=== PATIENT | male | born 1945 | race Caucasian/White ===

== ENCOUNTER 2018-07-06 11:37 | Inpatient (IN) ==
[2018-07-06] MEDS ORDERED: IOPAMIDOL 100 ML BOTTLE IV ONE (11:38)
--- NOTE | 2018-07-06 11:43 | Emergency Department Note ---
Neuro HPI - General Chief Complaint: Stroke Symptoms Stated Complaint: stroke symptoms Time Seen by Provider: 07/06/18 11:41 - History of Present Illness HPI Narrative: This patient was last known to be normal at 10 AM which is about an hour and a half ago. came back from the dentist and found that he is having some trouble speaking with slight right facial droop and trouble handling coffee cup. However he does seem to be improving some but still having a little speech difficulty. No focal neurologic weakness. He does have a long history of atrial fibrillation and only takes aspirin as an anti-coagulant. - Related Data Home Medications: Home Medications Medication Instructions Recorded Confirmed Carvedilol [Coreg] 12.5 mg PO BIDCC 07/06/18 07/06/18 Lovastatin [Mevacor] 5 mg PO HS 07/06/18 07/06/18 Naproxen [EC-Naprosyn] 500 mg PO DAILY 07/06/18 07/06/18 [place]-3 Fatty Acids/Fish Oil 1 each PO DAILY 07/06/18 07/06/18 [[place] 3 Fish Oil Softgel] Allergies/Adverse Reactions: Allergies Allergy/AdvReac Type Severity Reaction Status Date / Time No Known Drug Allergies Allergy Verified 07/06/18 11:44 Review of Systems All systems ED: reviewed and negative except as stated. Past Medical History - Past Medical History Medical history: Reports: atrial fibrillation Surgical history ED: Reports: herniorrhaphy (Umbilical) Physical Exam Limitations: no limitations General appearance: alert Head: atraumatic Eye: Present: normal appearance ENT: normal exam Neck: Present: normal inspection Chest: Present: normal inspection Respiratory: Present: normal lung sounds bilaterally Cardiovascular: Present: regular rate, normal rhythm, normal heart sounds Abdominal: Present: soft. Absent: distention, tenderness Neurological: Present: alert Psychiatric: Present: normal affect Skin: Present: warm, dry, intact Course Vital Signs Temperature 97.0 F 07/06/18 11:47 Pulse Rate 89 07/06/18 11:47 Respiratory Rate 18 07/06/18 11:47 Blood Pressure 177/112 07/06/18 11:47 Pulse Oximetry (%) 98 07/06/18 11:47 Temperature 97.0 F 07/06/18 11:47 Pulse Rate 77 07/06/18 14:55 Respiratory Rate 15 07/06/18 15:03 Blood Pressure 163/110 07/06/18 15:03 Pulse Oximetry (%) 99 07/06/18 14:55 Neuro Symptoms/Deficit - MDM Narrative Medical decision making narrative: The patient's symptoms had improved markedly by the time the stroke neurologist interviewed him and the patient and decided not to pursue TPA. We did do CTAs of head and neck that were not very remarkable. Also a brain MR may show a slight decrease in diffusion in the right temporal cortex. At this point the patient will be admitted to the hospital by Dr. Olivera. - Lab Data Lab results reviewed: Yes I reviewed the patient's lab results. Result diagrams: 07/06/18 11:47 07/06/18 11:47 Lab Results 07/06/18 07/06/18 07/06/18 Range/Units 11:47 11:47 11:47 WBC 7.3 (4.5-11.0) K/mcL RBC 4.35 L (4.50-5.90) M/mcL Hgb 14.4 (13.5-16.5) g/dL Hct 42.1 (41.0-55.0) % POC Hct 42.0 (41.0-55.0) % MCV 96.9 (80.0-100.0) fL MCH 33.1 (26.0-34.0) pg MCHC 34.2 (31.0-36.0) g/dL RDW 13.8 (11.5-14.5) % Plt Count 213 (140-440) K/mcL MPV 8.4 (7.4-10.4) fL Gran % 54.4 (38.0-78.0) % Lymph % (Auto) 31.0 (15.5-49.0) % [place] % (Auto) 11.1 (1.0-12.0) % Eos % (Auto) 2.8 (0.0-7.0) % Baso % (Auto) 0.7 (0.0-2.0) % Gran # 3.9 (1.8-8.0) K/mcL Lymph # (Auto) 2.3 (1.5-4.8) K/mcL [place] # (Auto) 0.8 (0.1-0.9) K/mcL Eos # (Auto) 0.2 (0.0-0.7) K/mcL Baso # (Auto) 0.1 (0.0-0.3) K/mcL POC PT 12.6 (11.9-14.5) sec POC INR 1.1 (0.9-1.2) APTT 31 (20-37) sec POC Sodium 143 (133-145) mmol/L Sodium 142 (133-145) mmol/L POC Potassium 4.3 (3.3-5.1) mmol/L Potassium 4.4 (3.3-5.1) mmol/L POC Chloride 101 (96-108) mmol/L Chloride 103 (96-108) mmol/L Carbon Dioxide 30 (22-30) mmol/L POC Total CO2 31 H (22-30) mmol/L Anion Gap 9.0 (8-16) POC BUN 20 (8-23) mg/dl BUN 17 (8-23) mg/dl Creatinine 1.0 (0.7-1.2) mg/dl POC Creatinine 1.1 (0.7-1.2) mg/dl GFR Calculation 75 Glucose 94 (70-105) mg/dL POC Glucose 94 (70-105) mg/dL Calcium 8.8 (8.6-10.4) mg/dl POC WB Ioniz Calcium 1.12 L (1.16-1.32) mmol/L Total Bilirubin 0.5 (0.0-1.0) mg/dL AST 21 (0-37) U/l ALT 16 (0-40) U/l Alkaline Phosphatase 64 (39-117) U/L Troponin T (0-0.03) ng/ml Total Protein 6.8 (5.9-8.4) gm/dL Albumin 3.8 (3.2-5.2) gm/dL Globulin 3.0 (2.2-3.7) gm/dL Albumin/Globulin Ratio 1.3 (1.0-2.3) Urine Color Urine Appearance Urine pH (5.0-9.0) Ur Specific [place] (1.000-1.035) Urine Protein (NEG) mg/dL Urine Glucose (UA) (NEG) mg/dL Urine Ketones (NEG) mg/dL Urine Occult Blood (<0.03) mg/dL Urine Nitrate (NEG) Urine Bilirubin (NEG) mg/dL Urine Urobilinogen (NEG) mg/dL Ur Leukocyte Esterase (NEG) /uL Ur Culture Indicated? 07/06/18 07/06/18 Range/Units 11:47 14:05 WBC (4.5-11.0) K/mcL RBC (4.50-5.90) M/mcL Hgb (13.5-16.5) g/dL Hct (41.0-55.0) % POC Hct (41.0-55.0) % MCV (80.0-100.0) fL MCH (26.0-34.0) pg MCHC (31.0-36.0) g/dL RDW (11.5-14.5) % Plt Count (140-440) K/mcL MPV (7.4-10.4) fL Gran % (38.0-78.0) % Lymph % (Auto) (15.5-49.0) % [place] % (Auto) (1.0-12.0) % Eos % (Auto) (0.0-7.0) % Baso % (Auto) (0.0-2.0) % Gran # (1.8-8.0) K/mcL Lymph # (Auto) (1.5-4.8) K/mcL [place] # (Auto) (0.1-0.9) K/mcL Eos # (Auto) (0.0-0.7) K/mcL Baso # (Auto) (0.0-0.3) K/mcL POC PT (11.9-14.5) sec POC INR (0.9-1.2) APTT (20-37) sec POC Sodium (133-145) mmol/L Sodium (133-145) mmol/L POC Potassium (3.3-5.1) mmol/L Potassium (3.3-5.1) mmol/L POC Chloride (96-108) mmol/L Chloride (96-108) mmol/L Carbon Dioxide (22-30) mmol/L POC Total CO2 (22-30) mmol/L Anion Gap (8-16) POC BUN (8-23) mg/dl BUN (8-23) mg/dl Creatinine (0.7-1.2) mg/dl POC Creatinine (0.7-1.2) mg/dl GFR Calculation Glucose (70-105) mg/dL POC Glucose (70-105) mg/dL Calcium (8.6-10.4) mg/dl POC WB Ioniz Calcium (1.16-1.32) mmol/L Total Bilirubin (0.0-1.0) mg/dL AST (0-37) U/l ALT (0-40) U/l Alkaline Phosphatase (39-117) U/L Troponin T < 0.01 (0-0.03) ng/ml Total Protein (5.9-8.4) gm/dL Albumin (3.2-5.2) gm/dL Globulin (2.2-3.7) gm/dL Albumin/Globulin Ratio (1.0-2.3) Urine Color Yellow Urine Appearance Clear Urine pH 7.0 (5.0-9.0) Ur Specific [place] 1.053 H (1.000-1.035) Urine Protein Neg (NEG) mg/dL Urine Glucose (UA) Negative (NEG) mg/dL Urine Ketones Neg (NEG) mg/dL Urine Occult Blood Neg (<0.03) mg/dL Urine Nitrate Neg (NEG) Urine Bilirubin Neg (NEG) mg/dL Urine Urobilinogen Neg (NEG) mg/dL Ur Leukocyte Esterase Neg (NEG) /uL Ur Culture Indicated? No - Radiology Data Radiology results reviewed: Yes I reviewed the patient's radiology results. Disposition Pt seen by TOY DESIGNER/PA only: No Clinical Impression: TIA (transient ischemic attack) Disposition: Xfer As Outpt/Obs ([facility]) Condition: Good Referrals: Marcy Velasco MD [Primary Care Provider] - Time of Disposition: 15:20
--- NOTE | 2018-07-06 11:59 | Cat Scan Report ---
CLINICAL INFORMATION: Stroke assessment. Dysarthria COMPARISON: None. TECHNIQUE: Axial noncontrast-enhanced images through the brain. FINDINGS: No acute intracranial hemorrhage. No intra-axial hematoma. No focal intra-axial attenuation abnormality or localized mass effect. No midline shift. No subdural hematoma. No subarachnoid hemorrhage. There is cerebral atrophy with prominent superficial subarachnoid spaces bilaterally. There is mild cerebellar atrophy. Brainstem is negative. Basilar cisterns are negative. No hyperdense middle cerebral artery sign. No calvarial fracture. No lytic lesion. Temporal bones are negative. IMPRESSION: 1. No acute abnormality. No acute intra-axial attenuation abnormality or mass effect. No intracranial hemorrhage 2. Cerebral atrophy with prominent superficial subarachnoid spaces The exam was performed using radiation dose optimization techniques including, but not limited to, automated exposure control, adjustment of the mA and/or kV according to patient size and use of iterative reconstruction technique. Interpreted and Authenticated by: Anthony Ramírez 07/06/18
[2018-07-06] MEDS ORDERED: ALTEPLASE 0 ML IV ONE (12:17)
[2018-07-06 12:39] LABS: Basophils # (Auto) 0.1 K/mcL (0.0-0.3); Basophils % (Auto) 0.7 % (0.0-2.0); Eosinophils # (Auto) 0.2 K/mcL (0.0-0.7); Eosinophils % (Auto) 2.8 % (0.0-7.0); Granulocytes % (Auto) 54.4 % (38.0-78.0); Lymphocytes # (Auto) 2.3 K/mcL (1.5-4.8); Mean Cell Volume 96.9 fL (80.0-100.0); Mean Corpuscular HGB Conc 34.2 g/dL (31.0-36.0); Monocytes # (Auto) 0.8 K/mcL (0.1-0.9); Monocytes % (Auto) 11.1 % (1.0-12.0); Platelet Count 213 K/mcL (140-440); RBC 4.35 M/mcL (4.50-5.90); Red Cell Distribution Width 13.8 % (11.5-14.5)
[2018-07-06 12:55] LABS: ALT/SGPT 16 U/l (0-40); Albumin 3.8 gm/dL (3.2-5.2); Albumin/Globulin Ratio 1.3 (1.0-2.3); Alkaline Phosphatase 64 U/L (39-117); Blood Urea Nitrogen 17 mg/dl (8-23)
--- NOTE | 2018-07-06 13:11 | Cat Scan Report ---
CLINICAL INFORMATION: Stroke symptoms TECHNIQUE: Axial images through the upper chest, neck, head. 80 mL contrast material injected intravenously. Scanning was performed during arterial phase. Sagittal and coronal reformatted images. MIP reformatted images COMPARISON: Noncontrast enhanced brain CT scan dated 07/06/2018 FINDINGS: There is calcification of the aortic arch. Origins of the left subclavian artery, left common carotid artery, innominate artery, right subclavian artery, right common carotid artery are negative. There is calcification at the origin of left vertebral artery. There is no origin stenosis. There is calcification at the origin of the right vertebral artery. There is evidence for hemodynamically significant stenosis. Right vertebral artery is a small caliber vessel. It is patent throughout its length. There is calcification with hemodynamically significant stenosis at the C4-5 level. Intracranial right vertebral artery is not visualized and is occluded or congenitally absent. Common carotid arteries and cervical internal carotid arteries are negative. No calcified or noncalcified plaque. No evidence for fibromuscular dysplasia. No ulceration. No stenosis. Intracranial portion of the left vertebral artery is patent. This is a small caliber vessel. Intracranial portion of the right vertebral artery is not patent. This is either occluded or congenitally absent. Basilar artery is a very small caliber vessel. Right posterior communicating artery and left posterior communicating artery are patent. Petrous, cavernous, supraclinoid segments of the internal carotid arteries are patent and normal. M1 segments of the middle cerebral arteries and A1 segments and anterior cerebral arteries are negative. No intracranial branch occlusion. No arteriovenous malformation. No aneurysm. No cortical or deep white matter enhancement. Lung apices are negative. No parenchymal mass. Cervical soft tissues are negative. No solid or cystic mass. No prevertebral soft tissue swelling. No pathologic adenopathy. IMPRESSION: 1. Abnormal right vertebral artery. There is stenosis at the origin of the right vertebral artery and atherosclerotic stenosis of the cervical right vertebral artery at the C4 level. Intracranial right vertebral artery is not visualized 2. Small caliber basilar artery. Basilar artery is patent. Posterior communicating arteries are patent 3. Common carotid arteries and internal carotid arteries are negative. Intracranial carotid circulation is negative Interpreted and Authenticated by: Anthony Ramírez 07/06/18
[2018-07-06 14:45] LABS: Appearance,Urine CLEAR; Bilirubin,Urine NEG (NEG); Color,Urine YELLOW; Glucose,Urine (UA) NEGATIVE (NEG); Leukocyte Esterase,Urine NEG /uL (NEG); Protein,Urine NEG (NEG); Specific Gravity,Urine 1.053 (1.000-1.035); Urine Blood NEG mg/dL (<0.03); Urobilinogen,Urine NEG (NEG)
--- NOTE | 2018-07-06 15:01 | Magnetic Resonance Report ---
CLINICAL INFORMATION: Dysarthria COMPARISON: Brain CT scan dated 07/06/2018. Neck and brain CTA dated 07/06/2018 TECHNIQUE: Sagittal T1 FLAIR images. Axial DWI, T1 FLAIR, T2 FLAIR, T2, GRE. Coronal T2 FSE. FINDINGS: There may be a subtle area of mildly restricted diffusion in the left insular cortex. This is in the superior medial left temporal lobe. There may be a subtle ADC abnormality. These findings are not considered definite but are suggestive of a very small focal acute infarction. No corresponding T2-weighted abnormality. There is no susceptibility. No hemorrhagic abnormality. Cerebral hemispheres are otherwise negative. No other focal abnormality. Brain volume is within normal limits. No hydrocephalus. Brainstem and cerebellum are negative. No extra-axial, intracranial abnormality. As described in a previous report there is a very small but patent basilar artery. IMPRESSION: 1. Possible small focus of restricted diffusion in the insular cortex of the left superior temporal lobe. 2. Very small basilar artery. Basilar artery is patent 3. No other abnormality Interpreted and Authenticated by: Anthony Ramírez 07/06/18
[2018-07-06] MEDS ORDERED: POTASSIUM CHLORIDE 40 MEQ in DEXTROSE 5% IN WATER 500 ML IV PRN ×2 (16:02→16:40)
[2018-07-06] MEDS ORDERED: MAGNESIUM SULFATE 2 GM/50 ML BAG IV PRN ×2 (16:02→16:40)
[2018-07-06] MEDS ORDERED: ONDANSETRON 4 MG/2 ML VIAL IV PRN ×2 (16:02→16:40)
[2018-07-06] MEDS ORDERED: POLYETHYLENE GLYCOL 3350 17 GM PACKET PO PRN ×2 (16:02→16:40)
[2018-07-06] MEDS ORDERED: POTASSIUM CHLORIDE 20 MEQ TABLET PO PRN ×4 (16:02→16:40)
[2018-07-06] MEDS ORDERED: ACETAMINOPHEN 325 MG TABLET PO PRN ×2 (16:02→16:40)
[2018-07-06] MEDS ORDERED: ASPIRIN 81 MG TAB.CHEW CHEWED ONE ×2 (16:07→16:40)
[2018-07-06] MEDS ORDERED: METOPROLOL TARTRATE 5 MG/5 ML VIAL IV PRN ×2 (16:08→16:40)
[2018-07-06] MEDS ORDERED: LABETALOL HCL 20 MG/4 ML SYRINGE IV ONE (16:08)
[2018-07-06] MEDS ORDERED: 0.9 % SODIUM CHLORIDE 1,000 ML IV SCH (16:15)
--- NOTE | 2018-07-06 16:16 | Internal Med History&Physical ---
Medical - H&P: HPI Patient information: Note initiated : 07/06/18 at 4:12 pm Service Date, if different from initiated Date: [] Patient: Narayan Vilchis 73 y/o M admitted on 07/06/18 for stroke symptoms. Chief Complaint: [] History of present illness: Mr. Vilchis is a 73 year old M who presents the ED with his after he developed right facial droop slurring and incoordination of his right hand. Per the patient and , came back from disappointment found him to have slurring of his speech as well as a right facial droop, he also felt what is described his right upper extremity dysmetria. His is worried about a stroke and brought him in rapidly. Does have history of atrial fibrillation and is been on aspirin and Coreg and is also on lovastatin 5 mg daily. In the ED had a full neurological workup including telemetry stroke workup. His symptoms essentially resolved after about 90 minutes which is the time of the stroke neurologist evaluated him. Imaging included CTA neck and head and a subsequent MRI. The carotid arteries appear to be patent the CT brain just showed some atrophy but no ischemic or hemorrhage. MRI showed a "possible small focus of restricted diffusion in the insular cortex of the left superior temporal lobe". TPA was not given because of the rapid improvement, and in discussion with patient family. Blood pressure elevated otherwise vitals unremarkable. EKG with A. fib at rate in the 80s Patient is not been sick recently. she believes he does not drink enough fluid. No stroke in the past. No vision changes. No focal extremity weakness or numbness Review of Systems: Pertinent positives as above. Denies headache/fever/chills/nausea/vomiting /chest or abdominal pain/cough/dyspnea/diarrhea. Remaining 10 point review of systems reviewed negative Medical - H&P: PMH Medical history: Medical history: Hypertension hyperlipidemia atrial fibrillation Surgical history: Herniorrhaphy Family history: Mother had CHF Father had myocardial infarction Social history: Patient smokes half pack of cigarettes per week, drinks alcohol one time a week lives at home with his Medical - H&P: Meds Home Medications Medication Instructions Recorded Confirmed Type Carvedilol [Coreg] 12.5 mg PO BIDCC 07/06/18 07/06/18 History Lovastatin [Mevacor] 5 mg PO HS 07/06/18 07/06/18 History Naproxen [EC-Naprosyn] 500 mg PO DAILY 07/06/18 07/06/18 History [place]-3 Fatty Acids/Fish Oil 1 each PO DAILY 07/06/18 07/06/18 History [[place] 3 Fish Oil Softgel] Allergies Allergy/AdvReac Type Severity Reaction Status Date / Time No Known Drug Allergies Allergy Verified 07/06/18 11:44 Medical - H&P: Exam - Constitutional Vitals: Temp Pulse Resp BP Pulse Ox 97.0 F 71 19 167/104 99 07/06/18 11:47 07/06/18 15:49 07/06/18 15:49 07/06/18 15:32 07/06/18 15:49 Exam: General: Alert, Awake, No acute Distress Eyes/N/T: EOMI, PEERL, DMM Head/Neck: neck supple, normocephalic atraumatic CV: Irregular irregular, No murmurs, normal s1/s2 Pulm: Clear b/l, no wheezing/rhonchi/rales Abd: soft, nontender, +BS x4 Ext: no clubbing/cyanosis/edema Neuro: Alert, no focal deficits, moves all extremities, CN 2-12 grossly intact, symmetrical strength b/l upper/lower, sensations intact b/l upper/lower. No pronator drift. Face symmetrical. Speech clear. Skin: warm/dry Medical - H&P: Reslt - Labs CBC & Chem 7: 07/06/18 11:47 07/06/18 11:47 Labs: Short CBC 07/06/18 Range/Units 11:47 WBC 7.3 (4.5-11.0) K/mcL Hgb 14.4 (13.5-16.5) g/dL Hct 42.1 (41.0-55.0) % Plt Count 213 (140-440) K/mcL BMP 07/06/18 11:47 Sodium 142 Potassium 4.4 Chloride 103 Carbon Dioxide 30 BUN 17 Creatinine 1.0 Glucose 94 Calcium 8.8 Cardiac Enzymes 07/06/18 Range/Units 11:47 Troponin T < 0.01 (0-0.03) ng/ml Liver Function 07/06/18 Range/Units 11:47 Total Bilirubin 0.5 (0.0-1.0) mg/dL AST 21 (0-37) U/l ALT 16 (0-40) U/l Alkaline Phosphatase 64 (39-117) U/L Albumin 3.8 (3.2-5.2) gm/dL Urine 07/06/18 Range/Units 14:05 Urine Color Yellow Urine Appearance Clear Urine pH 7.0 (5.0-9.0) Ur Specific [place] 1.053 H (1.000-1.035) Urine Protein Neg (NEG) mg/dL Urine Glucose (UA) Negative (NEG) mg/dL - Impressions EKG with A. fib, CT of the neck with patent carotid arteries, MRI of the brain with a possible small focus of restricted diffusion in the insular cortex on the left superior temporal lobe Medical - H&P: A/P - Narrative A/P Narrative: A: *TIA/CVA: MRI showing a possible diffusion abnormality in the insular cortex of the left superior temporal lobe -CTA Neck no sig carotid stenosis -ABCD=5 *Afib: had been on aspirin -CHADSVASC now after TIA/CVA=4 *HTN/HLD: * P: -IVF's -Permissive hypertension first 24 hours, hold Coreg today -Aspirin/statin -Check lipid panel -Start anticoagulation after 24 hours, Eliquis -neurochecks -echo pending - -pt/ot eval -ppx:lovenox
[2018-07-06] MEDS: 0.9 % SODIUM CHLORIDE 1,000 ML IV SCH ×2 (16:53→22:40)
[2018-07-06 20:26] LABS: HDL Cholesterol 55 mg/dl (>40); LDL Cholesterol,Calculated 74 mg/dl (SEE CHART)
[2018-07-06] MEDS: FAMOTIDINE 20 MG TABLET PO SCH (20:35)
[2018-07-06] MEDS: DOCUSATE SODIUM 100 MG CAPSULE PO SCH (20:35)
[2018-07-06] MEDS: 0.9 % SODIUM CHLORIDE 10 ML SYRINGE IV SCH (20:38)
[2018-07-06] MEDS ORDERED: DOCUSATE SODIUM 100 MG CAPSULE PO SCH (21:00)
[2018-07-06] MEDS ORDERED: ATORVASTATIN 20 MG TABLET PO SCH ×2 (21:00)
[2018-07-06] MEDS ORDERED: FAMOTIDINE 20 MG TABLET PO SCH (21:00)
[2018-07-06] MEDS ORDERED: SENNOSIDES 1 TABLET PO PRN ×2 (21:00)
[2018-07-06] MEDS ORDERED: 0.9 % SODIUM CHLORIDE 10 ML SYRINGE IV SCH (22:00)
[2018-07-07] MEDS: 0.9 % SODIUM CHLORIDE 10 ML SYRINGE IV SCH ×4 (05:41→20:34)
[2018-07-07 06:25] LABS: ALT/SGPT 15 U/l (0-40); Albumin 3.4 gm/dL (3.2-5.2); Albumin/Globulin Ratio 1.5 (1.0-2.3); Alkaline Phosphatase 51 U/L (39-117); Bilirubin,Direct < 0.2 mg/dL (0.0-0.3); Blood Urea Nitrogen 12 mg/dl (8-23); Gamma Glutamyl Transpeptidase 21 U/L (8-61); Uric Acid 4.9 mg/dL (2.5-8.0)
--- NOTE | 2018-07-07 07:05 | Internal Med Progress Note ---
Medical - PN: Subj Patient information: Note initiated : 07/07/18 at 6:57 am Service Date, if different from initiated Date: [] Patient: Narayan Vilchis 73 y/o M admitted on 07/06/18 for stroke symptoms. Chief Complaint: [] Interval history: Mr. Vilchis is a 73 year old M who presents the ED with his after he dev eloped right facial droop slurring and incoordination of his right hand. Per the patient and , came back from disappointment found him to have slurring of his speech as well as a right facial droop, he also felt what is described his right upper extremity dysmetria. His is worried about a stroke and brought him in rapidly. Does have history of atrial fibrillation and is been on aspirin and Coreg and is also on lovastatin 5 mg daily. In the ED had a full neurological workup including telemetry stroke workup. His symptoms essentially resolved after about 90 minutes which is the time of the stroke neurologist evaluated him. Imaging included CTA neck and head and a subsequent MRI. The carotid arteries appear to be patent the CT brain just showed some atrophy but no ischemic or hemorrhage. MRI showed a "possible small focus of restricted diffusion in the insular cortex of the left superior temporal lobe". TPA was not given because of the rapid improvement, and in discussion with patient family. Blood pressure elevated otherwise vitals unremarkable. EKG with A. fib at rate in the 80s Patient is not been sick recently. she believes he does not drink enough fluid. No stroke in the past. No vision changes. No focal extremity weakness or numbness 07/07 No overnight events. Doing well. Echo without any evidence of thrombus. No numbness or weakness or speech problems. Review of Systems: denies headache/fever/chills/nausea/vomiting/chest or abdominal pain/cough/dyspnea/diarrhea. Otherwise see above. - Constitutional Vitals: Vital Signs Temp Pulse Resp BP Pulse Ox 98.0 F 77 16 160/84 98 07/07/18 03:59 07/07/18 03:59 07/07/18 03:59 07/07/18 03:59 07/07/18 03:59 Period Temp Pulse Resp BP Sys/Jeronimo Pulse Ox Last 24 Hr 97.0 F-98.2 F 68-94 9- 155-177/84-135 95-99 Intake and Output 07/06/18 07/07/18 07/07/18 21:59 05:59 13:59 Intake Total 128 858 2401 Output Total 400 1350 Balance -160 -483 1999 Weight 103.782 kg Intake & Output: Intake & Output 07/06/18 07/07/18 07/07/18 21:59 05:59 13:59 Intake Total 348 874 2811 Output Total 400 1350 Balance -160 -483 1999 Weight 103.782 kg Intake: IV 867 2000 Sodium Chloride 0.9% 1,000 ml @ 867 1000 150 mls/hr IV .[id number] [facility] Rx#: [id number] Oral 240 Output: Void Amount 400 1350 Other: Meal Dinner Percent of Meal Consumed 100% Feeding Ability Assist with Tray Set Up Urine Color Dark Yellow Urine Odor Strong Exam: General: Alert, Awake, No acute Distress Eyes/N/T: EOMI, Head/Neck: neck supple, CV: Irregular irregular, Pulm: Clear b/l, no wheezing/rhonchi/rales Abd: soft, nontender, +BS x4 Ext: no clubbing/cyanosis/edema Neuro: Alert, sensation intact b/l upper/lower, strength appears symmetrical, no facial asymmetry or slurring of speech drift. Face symmetrical. Speech clear. Skin: warm/dry Medical - PN: Obj Da - Labs CBC & Chem 7: 07/06/18 11:47 07/07/18 03:30 Labs: Abnormal Lab Results 07/07/18 07/06/18 07/06/18 03:30 14:05 11:47 RBC POC Total CO2 31 H Anion Gap 7.0 L Calcium 8.3 L POC WB Ioniz Calcium 1.12 L Total Protein 5.7 L Ur Specific [place] 1.053 H 07/06/18 11:47 RBC 4.35 L POC Total CO2 Anion Gap Calcium POC WB Ioniz Calcium Total Protein Ur Specific [place] Meds: Medications Acetaminophen (Tylenol) 650 mg PO Q6HP PRN PRN Reason: PAIN/FEVER > 101 Aspirin (Aspirin) 81 mg CHEWED DAILY JUAN JOSÉ Stop: 07/07/18 09:01 Atorvastatin Calcium (Lipitor) 80 mg PO HS JUAN JOSÉ Last Admin: 07/06/18 20:35 Dose: 80 mg Documented by: Docusate Sodium (Colace) 100 mg PO BID [facility] Last Admin: 07/06/18 20:35 Dose: 100 mg Documented by: Enoxaparin Sodium (Lovenox) 40 mg SQ DAILY [facility] Famotidine (Pepcid) 20 mg PO BID [facility] Last Admin: 07/06/18 20:35 Dose: 20 mg Documented by: Potassium Chloride 40 meq/ (Dextrose) 520 mls @ 130 mls/hr IV ONCE PRN PRN Reason: Potassium < 3 Magnesium Sulfate (Magnesium Sulfate) 2 gm in 50 mls @ 50 mls/hr IV ONCE PRN PRN Reason: Magnesium </= 1.6 Metoprolol Tartrate (Lopressor) 5 mg IV Q4HP PRN PRN Reason: Tachyarrhythmias HR>115 Ondansetron HCl (Zofran) 4 mg IV Q4HP PRN PRN Reason: Nausea And Vomiting Polyethylene Glycol (Miralax) 17 gm PO DAILYP PRN PRN Reason: Constipation Potassium Chloride (Kdur) 40 meq PO ONCE PRN PRN Reason: Potassium is 3-3.5 Potassium Chloride (Kdur) 40 meq PO ONCE PRN PRN Reason: Potassium < 3 Senna (Senokot) 2 tab PO HSP PRN PRN Reason: Constipation Sodium Chloride (Saline Flush) 10 ml IV Q8 [facility] Last Admin: 07/07/18 05:41 Dose: 10 ml Documented by: Medical - PN: A/P - Time Spent With Patient Total time spent is greater than 50% in coordination of care (as documented) at patient's floor/unit and/or counseling patient: - Narrative A/P Narrative: A: *TIA/CVA (symptoms of right facial droop and RUQ weakness-resolved): MRI showing a possible diffusion abnormality in the insular cortex of the left superior temporal lobe -CTA Neck no sig carotid stenosis -ABCD=5 -echo no thrombus, *Afib: had been on aspirin -CHADSVASC now after TIA/CVA=4 *HTN/HLD: on coreg * P: -s/p IVF's -Permissive hypertension first 24 hours, then gradually add back home BP meds -Aspirin -statin -Start anticoagulation Alexander king -neurochecks -pt/ot eval -d/c likely tomorrow morning AM -ppx:lovenox stop when full anticoag started Medical - PN: Qual - Stroke Onset of Symptoms Date: 07/06/18 Onset of Symptoms Time: 10:30 Symptom Onset Unknown: Yes - VTE Deep Vein Thrombosis/Pulmonary Embolism Present on Admission: No
[2018-07-07] MEDS ORDERED: ENOXAPARIN 40 MG/0.4 ML SYRINGE SQ SCH ×2 (09:00)
[2018-07-07] MEDS ORDERED: ASPIRIN 81 MG TAB.CHEW CHEWED SCH ×2 (09:00)
[2018-07-07] MEDS ORDERED: METOPROLOL TARTRATE 25 MG TABLET PO ONE (09:11)
[2018-07-07] MEDS: DOCUSATE SODIUM 100 MG CAPSULE PO SCH ×2 (09:37→20:33)
[2018-07-07] MEDS: FAMOTIDINE 20 MG TABLET PO SCH ×2 (09:38→20:33)
[2018-07-07 15:44] LABS: Hemoglobin A1C 5.5 % HGB (4.0-6.0)
[2018-07-07] MEDS: CARVEDILOL 12.5 MG TABLET PO SCH (17:38)
[2018-07-07] MEDS ORDERED: APIXABAN 5 MG TABLET PO ONE (21:00)
[2018-07-07] MEDS ORDERED: SIMVASTATIN 10 MG TABLET PO SCH (21:00)
[2018-07-08] MEDS: 0.9 % SODIUM CHLORIDE 10 ML SYRINGE IV SCH (05:29)
[2018-07-08 05:47] LABS: Basophils # (Auto) 0 K/mcL (0.0-0.3); Basophils % (Auto) 0.4 % (0.0-2.0); Eosinophils # (Auto) 0.2 K/mcL (0.0-0.7); Granulocytes % (Auto) 57.9 % (38.0-78.0); Lymphocytes # (Auto) 1.7 K/mcL (1.5-4.8); Lymphocytes % (Auto) 27.3 % (15.5-49.0); Mean Cell Volume 99.6 fL (80.0-100.0); Mean Corpuscular HGB Conc 32.9 g/dL (31.0-36.0); Monocytes # (Auto) 0.7 K/mcL (0.1-0.9); Monocytes % (Auto) 11.4 % (1.0-12.0); Platelet Count 212 K/mcL (140-440); RBC 4.41 M/mcL (4.50-5.90)
[2018-07-08 06:12] LABS: ALT/SGPT 16 U/l (0-40); Albumin 3.6 gm/dL (3.2-5.2); Albumin/Globulin Ratio 1.2 (1.0-2.3); Alkaline Phosphatase 57 U/L (39-117); Bilirubin,Direct < 0.2 mg/dL (0.0-0.3); Blood Urea Nitrogen 14 mg/dl (8-23); Gamma Glutamyl Transpeptidase 24 U/L (8-61); Uric Acid 5.2 mg/dL (2.5-8.0)
[2018-07-08] MEDS: DOCUSATE SODIUM 100 MG CAPSULE PO SCH (08:26)
[2018-07-08] MEDS: CARVEDILOL 12.5 MG TABLET PO SCH (08:27)
[2018-07-08] MEDS: FAMOTIDINE 20 MG TABLET PO SCH (08:27)
[2018-07-08] MEDS ORDERED: amLODIPine 5 MG TABLET PO SCH (09:00)
[2018-07-08] MEDS ORDERED: APIXABAN 5 MG TABLET PO SCH (09:00)
--- NOTE | 2018-07-08 09:16 | Discharge Summary ---
Medical - DS: Prov Patient information: Note initiated : 07/08/18 at 9:14 am Service Date, if different from initiated Date: [] Patient: Narayan Vilchis 73 y/o M admitted on 07/06/18 for stroke symptoms. Chief Complaint: [] Date of admission: 07/06/18 15:50 Discharge date: 07/08/18 Primary care physician: Marcy Velasco Admitting clinician: Wilmar Olivera Consults: 07/06/18 Consult to Physician [CONS] Stat Comment: Consulting Provider: Wilmar Olivera Reason For Exam: Physician to Consult Discharging clinician: Magda Brewer Medical - DS: Meds - Discharge Medications Prescriptions: amLODIPine [Norvasc] 5 mg PO DAILY #30 tablet Apixaban [Eliquis] 5 mg PO BID #60 tab Active and Home Medications: Home Medications Carvedilol [Coreg] 12.5 mg PO BIDCC 07/06/18 [History Confirmed 07/06/18 Last Taken Unknown] Lovastatin [Mevacor] 5 mg PO HS 07/06/18 [History Confirmed 07/06/18 Last Taken Unknown] Naproxen [EC-Naprosyn] 500 mg PO DAILY 07/06/18 [History Confirmed 07/06/18 Last Taken Unknown] Malakoff-3 Fatty Acids/Fish Oil [Malakoff 3 Fish Oil Softgel] 1 each PO DAILY 07/06/18 [History Confirmed 07/06/18 Last Taken Unknown] Medical - DS: Hosp Hospital course: Mr. Vilchis is a 73 year old M who presented to the ED with his after he developed right facial droop slurring and incoordination of his right hand. Per the patient and , came back from a appointment and found him to have slurring of his speech as well as a right facial droop, he also felt what is described his right upper extremity dysmetria. His is worried about a stroke and brought him in rapidly. Does have history of atrial fibrillation and is been on aspirin and Coreg and is also on lovastatin 5 mg daily. In the ED had a full neurological workup including telemetry stroke workup. His symptoms essentially resolved after about 90 minutes which is the time of the stroke neurologist evaluated him. Imaging included CTA neck and head and a subsequent MRI. The carotid arteries appear to be patent the CT brain just showed some atrophy but no ischemic or hemorrhage. MRI showed a "possible small focus of restricted diffusion in the insular cortex of the left superior temporal lobe". TPA was not given because of the rapid improvement, and in discussion with patient family. Blood pressure elevated otherwise vitals unremarkable. EKG with A. fib at rate in the 80s Patient is not been sick recently. she believes he does not drink enough fluid. No stroke in the past. No vision changes. No focal extremity weakness or numbness 07/07 No overnight events. Doing well. Echo without any evidence of thrombus. No numbness or weakness or speech problems. 07/08 Pt stable ,no neurological events, hemodynamically stable, bp elevated, home meds resumed, started on amlodipine. Patient educated need for anticoagulation. Major risks benefits of the medication discussed, all questions answered including risk of GI bleed. Pt verbalized understanding of complications. Patient stable for discharge In Summary TIA/CVA- MR Head noted a small focus of restricted diffusion, CTA head nad neck neg, had right vertebral artery stenosis, he was only on aSA, a1c normal, ldl 72, likely etiology was afib, stopped ASA, started on eliquis 5mg bid. For HTN, pt is on coreg, added amlodipine, follow up with cardiology Pt advised follow up with stroke/tia clinic in [place] for further management/ vertebral artery stenosis. MR head IMPRESSION: 1. Possible small focus of restricted diffusion in the insular cortex of the left superior temporal lobe. 2. Very small basilar artery. Basilar artery is patent 3. No other abnormality CT head Neg for acute intracranial pathology Echo Mild LVH low normal lv function mild pulm HTN mild MR mildly dilated LA moderately dilated RA, RV mildly dilated CTA head and neck IMPRESSION: 1. Abnormal right vertebral artery. There is stenosis at the origin of the right vertebral artery and atherosclerotic stenosis of the cervical right vertebral artery at the C4 level. Intracranial right vertebral artery is not visualized 2. Small caliber basilar artery. Basilar artery is patent. Posterior communicating arteries are patent 3. Common carotid arteries and internal carotid arteries are negative. Intracranial carotid circulation is negative Discharge diagnosis: CVA/TIA - Time Spent with Patient Total time spent providing and/or coordinating discharge services: Less than 30 minutes Medical - DS: Exam - Constitutional Vitals: Vital Signs Temp Pulse Resp BP BP Pulse Ox 07/08/18 07:43 97.7 F 18 156/110 100 07/08/18 03:59 98.3 F 86 18 159/106 98 07/07/18 23:40 98.0 F 66 20 167/105 96 07/07/18 19:39 98.0 F 81 20 154/108 98 07/07/18 16:00 97.2 F 16 161/89 99 07/07/18 12:15 97.8 F 92 H 16 173/110 96 Intake and Output 07/07/18 07/08/18 07/08/18 21:59 05:59 13:59 Intake Total 420 Output Total 1275 1025 Balance -855 -1025 Intake: Oral 420 Output: Void Amount 1275 1025 Other: Meal Dinner Percent of Meal Consumed 100% Feeding Ability Independent Urine Appearance Clear Clear Urine Color Pale Pale Urine Odor Normal Weight 230 lb Additional comments: Constitutional; Afebrile, cooperative, alert, not in distress. Eyes- No icterus, , No periorbital swelling Ears- Ext ear normal, hearing normal to conversation. Neck- Midline trachea, supple Respiratory system: Air Entry equal on both sides, No crackles or wheezing, no rhonchi. CVS- Rate rhythm regular, S1,S2 heard, no gallop, no rub. Abdomen- Soft nontender abdomen, no organomegaly, no tenderness, no guarding or rigidity, [employer]ATOR- AOOx3, moving all extremities, no gross focal deficit noted. Medical - DS: Data Labs on day of discharge: Labs from last 24 hours 07/08/18 07/08/18 07/08/18 03:35 03:35 03:35 WBC 6.2 RBC 4.41 L Hgb 14.5 Hct 43.9 MCV 99.6 MCH 32.8 MCHC 32.9 RDW 14.0 Plt Count 212 MPV 8.5 Gran % 57.9 Lymph % (Auto) 27.3 Preston % (Auto) 11.4 Eos % (Auto) 3.0 Baso % (Auto) 0.4 Gran # 3.6 Lymph # (Auto) 1.7 Preston # (Auto) 0.7 Eos # (Auto) 0.2 Baso # (Auto) 0 PT 14.6 H INR 1.1 Sodium 142 Potassium 4.7 Chloride 104 Carbon Dioxide 29 Anion Gap 9.0 BUN 14 Creatinine 1.0 GFR Calculation 75 Glucose 85 Hemoglobin A1c Estim Average Glucose Uric Acid 5.2 Calcium 8.9 Phosphorus 2.9 Magnesium 2.0 Total Bilirubin 0.5 Direct Bilirubin < 0.2 GGT 24 AST 19 ALT 16 Alkaline Phosphatase 57 Lactate Dehydrogenase 224 Total Protein 6.5 Albumin 3.6 Globulin 2.9 Albumin/Globulin Ratio 1.2 Triglycerides 82 07/07/18 03:30 WBC RBC Hgb Hct MCV MCH MCHC RDW Plt Count MPV Gran % Lymph % (Auto) Preston % (Auto) Eos % (Auto) Baso % (Auto) Gran # Lymph # (Auto) Preston # (Auto) Eos # (Auto) Baso # (Auto) PT INR Sodium Potassium Chloride Carbon Dioxide Anion Gap BUN Creatinine GFR Calculation Glucose Hemoglobin A1c 5.5 Estim Average Glucose 111 Uric Acid Calcium Phosphorus Magnesium Total Bilirubin Direct Bilirubin GGT AST ALT Alkaline Phosphatase Lactate Dehydrogenase Total Protein Albumin Globulin Albumin/Globulin Ratio Triglycerides Medical - DS: A/P - Patient/Caregiver Discharge Instructions Activity: increase activity as tolerated Diet: Low Sodium (2gm), Cardiac Additional Instructions: Please go back to the ER if you notice any worsening signs of stroke/ CVA You have been started on a new blood thinner, eliquis 5mg twice daily. This medication will help reduce the risk of future strokes, but can also increase the risk of bleeding. Please go to the ER if yo have uncontrolled bleeding, black stools. Go to the ER if you have chest pain, shortness of breath or any other acute concerns Do not take Aspirin, alleve, motrin, ibuprofen, naproxen or any other NSAIDs as this will increase your risk of bleeding. Use tylenol for pain management as far as possible. Your blood pressure is elevated and I am starting you on amlodipine 5mg daily for blood pressure control, you will need to follow up with Dr Balderrama who will further titrate this medication. You will continue to take your coreg Besides stopping Aspirin and Alleve I am not stopping any other medication. please take all your other home meds as prescribed by your regular doctor. Follow up with PCP in 1-2 weeks Follow up with the stroke neurology clinic for further evaluation and treatment plan for your TIA/CVA - Follow up Plan Follow up with: [facility] [Other] (Your Hospital visit has been faxed to [facility] in [place], [place]. They will contact you after reviewing the information to schedule an appointment with Dr. Marcy Saleh.) Marcy Velasco MD [Primary Care Provider] - 07/13/18 3:00 pm Hitesh Balderrama MD [Physician] - 07/18/18 3:00 pm (Please continue with your current appointment) Disposition: Home, Self-Care Prognosis: Good Rehab Potential: Good I certify that the patient requires SNF services: No Overall status at discharge: patient is back to baseline Medical - DS: Qual - VTE Deep Vein Thrombosis/Pulmonary Embolism Present on Admission: No
== END 2018-07-08 11:44 | disposition home or self-care (01) | DRG 66 ==
LOC: ED 11:37 → ICU 15:50
PROVIDERS: ADMIT Internal Medicine; ATTEND Internal Medicine